=== PATIENT | male | born 2000 | race Caucasian/White ===

== ENCOUNTER 2023-09-10 08:31 | Outpatient (CLI) | payer OTHER ==
--- NOTE | 2023-09-10 10:42 | MRI Report ---
Shoulder LT WO CLINICAL HISTORY: 23 years of age, Male, L SHOULDER PAIN. Comparison: No priors available Technique: Multiplanar, multisequence MRI of the shoulder was performed without intravenous contrast . IV Contrast: Not Administered. Findings: Osseous acromial outlet: The acromioclavicular joint is unremarkable. Type I acromion. No os acromial e. Mild subacromial/subdeltoid bursitis. Rotator cuff muscles and tendons: The supraspinatus, infraspinatus, subscapularis, and teres minor ar e intact without evidence of tendinosis or tear. Muscles are intact without evidence of atrophy or edema. Labral and capsular structures: Anterior superior labral tear Biceps tendon and anchor: The intra-articular and extra-articular biceps tendon are intact. Osseous and cartilaginous structures: Bone marrow signal is within normal limits. No fracture or disl ocation. No focal chondral defects. Miscellaneous: Small glenohumeral effusion. No signs subcoracoid bursitis. No intra-articular anthony s. The remaining muscles are normal in bulk without evidence of atrophy or edema. Nodular signal abnormality measuring 1.2 cm in the left lung (series 7, image 2). IMPRESSION: 1.Mild subacromial/subdeltoid bursitis. 2.Anterior superior labral tear. 3.1.2 cm nodular signal abnormality in the left lung, which may represent a partially visualized ves miriam, but is incompletely evaluated. Recommend further evaluation with chest radiograph. Reviewed by: Jesika Ortega MD on 09/10/2023 10:41 AM PDT Approved by: Jesika Ortega MD on 09/10/2023 10:41 AM PDT Station ID: [id number]
== END 2023-09-10 08:32 | disposition home or self-care (01) ==
LOC: DI 08:31
PROVIDERS: ATTEND Nurse Practitioner Family
DX: M75.52 Bursitis of left shoulder (principal); S43.432A Superior glenoid labrum lesion of left shoulder, initial encounter; R91.1 Solitary pulmonary nodule